=== PATIENT | female | born 1955 | race Caucasian/White ===

== ENCOUNTER 2021-03-29 16:20 | Emergency (ER) | payer MEDICARE, OTHER ==
[~2021-03-29] VITALS: Ht 165.1 cm; Wt 81.7 kg
[2021-03-29] MEDS ORDERED: SINGULAIR 10 MG10 M1 PO (16:30)
[2021-03-29] MEDS ORDERED: NEURONTIN 300M300 M2 PO (16:30)
[2021-03-29] MEDS ORDERED: LAMOTRIGINE250 MG PO (16:31)
[2021-03-29] MEDS ORDERED: HYDROCODON-ACE1 EAC7 PO ×3 (17:13→18:39)
[2021-03-29 17:24] VITALS: BP 133/74
== END 2021-03-29 17:25 | disposition home or self-care (01) ==
LOC: M.ERS 16:20
DX: S61.211A Laceration without foreign body of left index finger without damage to nail, initial encounter (principal); Z88.1 Allergy status to other antibiotic agents; Z88.2 Allergy status to sulfonamides; W26.8XXA Contact with other sharp object(s), not elsewhere classified, initial encounter; Y93.89 Activity, other specified; Y92.89 Other specified places as the place of occurrence of the external cause; Y99.8 Other external cause status